=== PATIENT | male | born 1970 | race Asian ===

== ENCOUNTER 2016-07-19 01:36 | Emergency (ER) | payer OTHER ==
--- NOTE | ~2016-07-19 | ER ---
PATIENT'S NAME: [facility] AGE: 46 Y [address] ROOM: [place] [address] LOCATION: [facility] ADMIT DATE: 07/19/2016 ER/Outpatient Report DISCHARGE DATE: 07/19/2016 FAMILY PHYSICIAN: Jaime Coy MD ATTENDING PHYSICIAN: Lien Conrad Time of Arrival: 0136 hours. Time Seen: 0150 hours. IDENTIFICATION: A 46-year-old male. CHIEF COMPLAINT: Left side pain. HISTORY OF PRESENT ILLNESS: The patient has some left-sided rib pain and lateral chest pain since 8 p.m. He has been coughing for 3 weeks. He was treated with antibiotics 3 weeks ago, it sounds like maybe Omnicef. He said he took 300 mg tablet 2 of them once daily for 10 days. He has finished that. His cough is not improved. He is coughing up brown sputum. He is short of breath and that he feels like he has pain with a deep breath. No fever or chills. He is taking a prescription cough medicine, but he is not sure what it is. He has taken nothing for pain. He has no anterior chest pain. PAST MEDICAL HISTORY: ALLERGIES: NO KNOWN DRUG ALLERGIES. CURRENT MEDICATIONS: Denies. MEDICAL PROBLEMS: Denies. No prior surgeries or hospitalizations. SOCIAL HISTORY: The patient lives here in [place]. He is . 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 Tobacco use, denies. Alcohol use, occasional. Drug use, denies. FAMILY HISTORY: Father had a CVA. Brother with RI at age 32. REVIEW OF SYSTEMS: In general, he has had no fever or chills, no headache, no blurred vision. No PATIENT'S NAME: [facility] AGE: 46 Y [address] ROOM: [place] [address] LOCATION: [facility] ADMIT DATE: 07/19/2016 ER/Outpatient Report DISCHARGE DATE: 07/19/2016 FAMILY PHYSICIAN: Jaime Coy MD ATTENDING PHYSICIAN: Lien Conrad neck pain or stiffness. No sore throat. He has had some nasal drainage and postnasal drainage. He has no sore throat. He has a productive cough and discomfort as noted in the HPI. No abdominal pain, nausea, or vomiting. No dysuria. No increased frequency of urination. No constipation or diarrhea. No skin rashes. No history of diabetes or thyroid abnormalities. No history of bleeding diathesis or blood clots. No numbness, tingling, or weakness. PHYSICAL EXAMINATION: VITAL SIGNS: Height 5 feet 3 inches, weight 61.9 kilograms, blood pressure 117/73, pulse 84, respiration rate 16, temp 98.7, sats 98%. GENERAL: A 46-year-old male in no acute distress. HEENT: Head; normocephalic, atraumatic. Ears; TMs translucent, both ears. Nose; mucosa pink, no lesions or drainage, no sinus tenderness. Mouth, no lesions. Pharynx, benign. NECK: Supple. No lymphadenopathy. No nuchal rigidity. CHEST WALL: He does have some chest wall tenderness to palpation along his left lateral rib cage. No palpable deformities. No crepitus. LUNGS: Clear to auscultation. Breath sounds are equal, but diminished due to poor inspiratory effort. HEART: Regular rate and rhythm. No murmur, rub, or gallop. ABDOMEN: Bowel sounds present. Soft, nondistended, nontender. SKIN: [place], warm, and dry. No lesions or rashes noted. NEURO: The patient is alert and oriented x4. Cranial nerves 2 through 12 grossly intact. Motor strength 5/5 throughout. Sensation is intact to light touch. No lower extremity edema. No calf tenderness. LABORATORY DATA AND X-RAYS: Two-view chest x-ray shows a left upper lobe infiltrate in a wedge-shaped fashion. No bony abnormalities are noted, and this is pending Radiology overread. With his family history, we did obtain an EKG, normal sinus rhythm at 78 beats per minute. No acute ST elevation or depression. No prior EKG available for comparison. D-dimer 0.36. Sodium 143, potassium 3.6, chloride 108, CO2 of 27, BUN 17, creatinine 1.1, blood sugar 110. Liver enzymes normal. Magnesium 2.3. CPK 172, CK-MB less than 0.5, troponin I less than 0.040. Hemoglobin 12.9, hematocrit 38.9, platelets 319, white count 13.4 with 68% neutrophils. INR 0.93. IMPRESSION: Community-acquired pneumonia. PLAN: PATIENT'S NAME: [facility]ARY [facility] AGE: 46 Y [address] ROOM: [place] [address] LOCATION: [facility] ADMIT DATE: 07/19/2016 ER/Outpatient Report DISCHARGE DATE: 07/19/2016 FAMILY PHYSICIAN: Jaime Coy MD ATTENDING PHYSICIAN: Lien Conrad The patient is hemodynamically stable. Sats are 98% on room air. We will treat him as an outpatient. Rocephin 1 g IM given here in the emergency room. Zithromax 500 mg p.o. given in the emergency room. The patient will be discharged home on Zithromax 250 daily for 4 days, to start on July 20. Tylenol for pain. Robitussin AC 5 to 10 mL p.o. q.4 hours p.r.n. cough. The patient did not want any stronger pain medication. He was given Tylenol here 1000 mg for discomfort. Vital signs remained stable, his pain did improve, and he will follow up with Dr. Coy in 2 to 7 days. Follow up sooner if any problems or concerns. Follow up immediately if any respiratory distress. The patient and his understand and agree, and all questions have been answered. LIEN CONRAD MD CAR/modl /[id number] d: 07/19/16527 t: 07/23/16699, OUTPATIENT REPORT
[2016-07-19 02:16] LABS: BASOPHIL # 0.1 K/uL (0.0-0.2); EOSINOPHIL # 0.4 K/uL (0.0-0.5); HEMATOCRIT 38.9 % (37.0-53.0); HEMOGLOBIN 12.9 g/dL (12.0-17.0); IMMATURE GRANULOCYTE # 0.1 K/uL (0.0-0.3); IMMATURE GRANULOCYTE % 0.4 %; LYMPHOCYTE # 2.6 K/uL (0.8-4.0); LYMPHOCYTE % 19.6 %; MCH 30.6 pg (27.0-34.0); MCHC 33.2 gm/dL (32.0-36.5); MCV 92.4 fl (83.0-98.0); MONOCYTE % 7.1 %; MPV 8.7 fl (9.4-12.4); NEUTROPHIL # (ANC) 9.2 K/uL (1.4-9.0); NEUTROPHIL % 68.9 %; NRBC % 0 /100WBC (0-0.00); PLATELET COUNT 319 K/uL (150-450); RBC 4.21 M/uL (4.00-6.00); RDW-CV 12.8 % (11.9-14.6); WBC 13.4 K/uL (4.0-11.0)
[2016-07-19 02:27] LABS: INR - (THERAPEUTIC) 0.93 (0.92-1.07); PROTIME 9.8 SECONDS (9.8-11.4); PTT 32 SECONDS (25-32)
[2016-07-19 02:34] LABS: ALBUMIN 3.6 gm/dL (3.5-5.0); ALK PHOS 61 IU/L (33-138); ALT 20 IU/L (12-78); ANION GAP 11.6 (10.0-19.0); AST 18 IU/L (10-40); BLOOD UREA NITROGEN 17 mg/dL (6-24); CALCIUM 8.2 mg/dL (8.5-10.5); CHLORIDE 108 mMol/L (96-110); CO2 27 mMol/L (22-32); CPK 172 IU/L (35-332); CREATININE 1.1 mg/dL (0.6-1.3); ESTIMATED GFR (MDRD EQUATION) > 60; MAGNESIUM 2.3 mg/dL (1.8-2.6); POTASSIUM 3.6 mMol/L (3.7-5.1); SODIUM 143 mMol/L (135-145); TOTAL BILIRUBIN 0.2 mg/dL (0.0-1.5); TOTAL PROTEIN 8.1 g/dL (6.0-8.4)
== END 2016-07-19 03:14 | disposition disaster alternative care site (69) ==
LOC: GMED 01:36
PROVIDERS: Family Medicine
DX: J18.9 Pneumonia, unspecified organism (principal)
CPT/HCPCS: J0696